=== PATIENT | male | born 1935 | race African-American/Black ===

== ENCOUNTER 2017-11-11 14:23 | Emergency (ER) | payer BC ==
[2017-11-11] MEDS: morphine 4 MG/ML VIAL IM (17:20)
[2017-11-11] MEDS: KETOROLAC 30 MG INJ IM (17:20)
== END 2017-11-11 20:44 | disposition home or self-care (01) ==
LOC: FTE 14:23
DX: M48.02 Spinal stenosis, cervical region (principal); M13.851 Other specified arthritis, right hip
CPT/HCPCS: 72125; 73510; 96372; 99285-25

== ENCOUNTER 2018-07-01 14:36 | Emergency (ER) | payer BC ==
[2018-07-01] MEDS: NA PHOSPHATE/BIPHOS 133 ML ENEMA PR (16:20)
[2018-07-01] MEDS: MAGNESIUM CITRATE 300 ML BTL PO (16:46)
[2018-07-01] MEDS: GLYCERIN (ADULT) SUPP PR (16:47)
== END 2018-07-01 18:06 | disposition home or self-care (01) ==
LOC: FTE 14:36
DX: K59.03 Drug induced constipation (principal)
CPT/HCPCS: 99283

== ENCOUNTER 2019-01-19 03:53 | Emergency (ER) | payer BC ==
[2019-01-19] MEDS: ONDANSETRON 4 MG INJ IV ×3 (05:38→09:56)
[2019-01-19] MEDS: morphine 2 MG INJ IV (05:38)
[2019-01-19 05:44] LABS: ADD MAN DIFF? NO
[2019-01-19 05:46] LABS: WHITE BLOOD COUNT 14.9 10^3/ul (4.8-10.8)
[2019-01-19 05:46] LABS: BASOPHIL # 0.1 10^3/ul (0.0-0.1); BASOPHILS % 0.4 % (0.0-2.0); EOSINOPHILS # 0.1 10^3/ul (0.0-0.5); EOSINOPHILS % 0.7 % (0.0-7.0); HEMATOCRIT 41.4 % (42.0-52.0); HEMOGLOBIN 13.4 g/dl (14.0-18.0); LYMPHOCYTES # 1.9 10^3/ul (0.8-2.9); MEAN CORPUSCULAR HEMOGLOBIN 28.7 pg (29.0-33.0); MEAN CORPUSCULAR HGB CONC 32.4 g/dl (32.0-37.0); MEAN CORPUSCULAR VOLUME 88.7 fl (82.0-101.0); MEAN PLATELET VOLUME 11.7 fl (7.4-10.4); MONOCYTE # 0.8 10^3/ul (0.3-0.9); MONOCYTES % 5.1 % (0.0-11.0); NEUTROPHIL # 11.9 10^3/ul (1.6-7.5); NEUTROPHILS % 80.1 % (39.0-77.0); PLATELET COUNT 218 10^3/UL (140-415); RED BLOOD COUNT 4.67 10^6/ul (4.70-6.10); RED CELL DISTRIBUTION WIDTH 13.2 % (11.5-14.5)
[2019-01-19 06:05] LABS: ALANINE AMINOTRANSFERASE 21 IU/L (13-69); ALBUMIN 4.1 g/dl (3.3-4.9); ALBUMIN/GLOBULIN RATIO 1.13; ALKALINE PHOSPHATASE 105 IU/L (42-121); ANION GAP 7 (5-13); ASPARTATE AMINO TRANSFERASE 33 IU/L (15-46); BILIRUBIN,INDIRECT 0.7 mg/dl (0-1.1); BILIRUBIN,TOTAL 0.7 mg/dl (0.2-1.3); BLOOD UREA NITROGEN 25 mg/dl (7-20); CALCIUM 9.8 mg/dl (8.4-10.2); CARBON DIOXIDE 29 mmol/L (21-31); CHLORIDE 105 mmol/L (97-110); CREATININE 0.93 mg/dl (0.61-1.24); GLUCOSE 122 mg/dl (70-220); LIPASE 123 U/L (23-300); POTASSIUM 4.3 mmol/L (3.5-5.1); SODIUM 141 mmol/L (135-144); TOTAL PROTEIN 7.7 g/dl (6.1-8.1)
[2019-01-19 06:40] LABS: ADD UMIC YES; UR ASCORBIC ACID 20 mg/dL (NEGATIVE); UR BACTERIA FEW /HPF (NONE SEEN); UR BILIRUBIN (Dip) NEGATIVE (NEGATIVE); UR BLOOD (Dip) 2+ mg/dL (NEGATIVE); UR CLARITY CLOUDY (CLEAR); UR COLOR YELLOW (YELLOW); UR GLUCOSE (Dip) NEGATIVE (NEGATIVE); UR KETONES (Dip) NEGATIVE (NEGATIVE); UR LEUKOCYTE ESTERASE (Dip) 3+ Leu/ul (NEGATIVE); UR MUCUS MODERATE /HPF (NONE SEEN); UR NITRITE (Dip) NEGATIVE (NEGATIVE); UR RBC 26 /HPF (0-5); UR SPECIFIC GRAVITY (Dip) 1.016 (1.003-1.030); UR TOTAL PROTEIN (Dip) NEGATIVE (NEGATIVE); UR UROBILINOGEN (Dip) NEGATIVE (NEGATIVE); UR WBC > 182 /HPF (0-5)
[2019-01-19] MEDS: HYDROmorphONE 1 MG/ML SYG IV ×2 (06:48→09:56)
[2019-01-19] MEDS: SOD CHLORIDE 0.9% 1,000 ML IV ×2 (06:54→09:56)
[2019-01-19 07:46] LABS: TROPONIN-I < 0.012 ng/ml (0.000-0.120)
[2019-01-19] MEDS: CEFTRIAXONE 1 GM/50 ML (PMX) 50 ML IVPB (09:55)
== END 2019-01-19 13:20 | disposition short-term general hospital (02) ==
LOC: E/R 03:53
DX: N20.0 Calculus of kidney (principal); N12 Tubulo-interstitial nephritis, not specified as acute or chronic
CPT/HCPCS: 36415; 74176; 80053; 81001; 83690; 84484; 85025; 87086; 93005; 96374; 96375; 96376; 99285-25